=== PATIENT | male | born 1965 | race Caucasian/White ===

== ENCOUNTER 2017-08-17 05:45 | Day surgery (SDC) | payer BC ==
[2017-08-16 15:58] LABS: HEMATOCRIT 32.8 % (42.0-54.0); MCH 29.4 pg (26.0-34.0); MCHC 33.5 g/dL (31.0-37.0); MCV 87.7 fL (80.0-100.0); MEAN PLATELET VOLUME 9.4 fL (7.4-10.4); RBC 3.74 10x6/uL (4.20-6.10); RDW 17.6 % (11.5-14.5); WBC 8.1 10x3/uL (4.8-10.8)
[2017-08-16 16:21] LABS: ANION GAP 12.4 mmol/L (8-16); CALCIUM 9.5 mg/dL (8.5-10.1); CARBON DIOXIDE 29.3 mmol/L (21.0-32.0); CREATININE - SERUM 1.7 mg/dL (0.6-1.3); POTASSIUM - SERUM 3.7 mmol/L (3.5-5.1)
[~2017-08-17] VITALS: Ht 177.8 cm; Wt 81.2 kg
[2017-08-17] MEDS ORDERED: BACTRIM DS TABL1 TAB PO (08:27)
[2017-08-17] MEDS ORDERED: FOLIC ACID1 MG PO (08:28)
[2017-08-17] MEDS ORDERED: HCTZ25 MG PO (08:28)
[2017-08-17] MEDS ORDERED: METHOTREXATE2.5 MG PO (08:29)
[2017-08-17] MEDS ORDERED: LISINOPRIL10 MG PO (08:29)
[2017-08-17] MEDS ORDERED: TUMERIC PO (08:30)
[2017-08-17 08:37] VITALS: BP 123/71; Ht 177.8 cm; Wt 81.2 kg
--- NOTE | 2017-08-17 10:28 | NUR ---
BLOOD PRESSURE IS LOW BUT ANESTHESIA (TOI SCHULTZ) IS HERE MANAGING BLOOD PRESSURE, GIVING EPHEDRINE.
--- NOTE | 2017-08-18 08:04 | OP ---
PATIENT NAME: RAJWINDER ELAINE MEDICAL RECORD: [id number] LOCATION:D[facility] ADMISSION DATE: SURGEON: JUAN FORREST MD DATE OF OPERATION: 08/17/2017 SURGEON: Juan Forrest MD ANESTHESIA: MAC by Stephane Enriquez CRNA. PREOPERATIVE DIAGNOSIS: Elevated PSA 4.64. PROCEDURE: Transrectal ultrasound and prostate biopsy. FINDINGS: A 48 gram prostate, small hypoechoic areas on the right apex. SPECIMENS: Prostate biopsy cores. ESTIMATED BLOOD LOSS: Minimal. CLINICAL HISTORY: This is a 52-year-old male referred by Dr. Mariano for an elevated PSA of 4.64, which was obtained on 05/23/2017. He has never had a PSA done previously. He has minimal voiding symptoms except for nocturia times 2-3. There is no family history of prostate cancer. On rectal examination, he had a benign feeling moderately enlarged prostate about 50 grams in size. He is not allergic to any medications. He was given Levaquin IV frontload driver to the OR. DESCRIPTION OF PROCEDURE: The patient was given IV sedation. He was placed in the dorsal lithotomy position and prepped. The transrectal ultrasound probe was introduced and prostate size measurements were obtained. Prostate size was estimated at 48 grams. Sextant biopsies were obtained. On the right apex we noted a hypoechoic area and I tried to make sure that the needle pass through this hypoechoic lesion. Once all the sextant cores were obtained, they were sent to pathology in formalin. The patient was awakened and brought to the preoperative holding area. I will see him in followup in 2 weeks' time to review the pathology with him. TRANSINT:[id number] Voice Confirmation ID: [id number] DOCUMENT ID: [id number] JUAN FORREST MD at 0804 CC: [id number] DICTATION DATE: 08/17/17 1026 [employer] OPERATOR: 08/17/17 1141 [facility] 08/17/[address] [id number]
== END 2017-08-17 11:35 | disposition home or self-care (01) ==
LOC: D.OPS 05:45 → D.PAN 09:15 → D.OPS 09:15
PROVIDERS: Anesthesiology
DX: R97.20 Elevated prostate specific antigen [PSA] (principal); I10 Essential (primary) hypertension; Z01.812 Encounter for preprocedural laboratory examination